=== PATIENT | male | born 1965 | race Caucasian/White ===

== ENCOUNTER 2017-05-05 10:21 | Emergency (ER) | payer OTHER ==
[~2017-05-05] VITALS: Ht 177.8 cm; Wt 63.5 kg
[~2017-05-05 10:21] MED LIST: CITA20 PO; CLON1 PO; CRUTCH3 USE; EPIPEN 2-P0.3 MG/0.3; HYDACE5 PO; LORA.5 PO; NITRSPRAY; ONDA4 PO; PROM25 PO; RXLORA1 PO; TRAZ50 PO
[2017-05-05] MEDS ORDERED: Norco 5-325 Ta1 EACH PO (11:32)
== END 2017-05-05 11:39 | disposition home or self-care (01) ==
LOC: ER 10:21
DX: M79.661 Pain in right lower leg (principal); M71.21 Synovial cyst of popliteal space [Baker], right knee; Z87.891 Personal history of nicotine dependence
CPT/HCPCS: 93971; 99284

== ENCOUNTER 2017-08-01 10:38 | Inpatient (IN) | payer OTHER ==
[~2017-08-01] VITALS: Ht 177.8 cm; Wt 68.0 kg
[~2017-08-01 10:38] MED LIST changes: +Norco 5-325 Ta1 EACH PO
[2017-08-01] MEDS ORDERED: OXYC5 PO (12:09)
[2017-08-01] MEDS ORDERED: ACET325 PO (12:09)
[2017-08-01] MEDS ORDERED: ENOX40I SC (12:09)
[2017-08-01] MEDS ORDERED: GABA300 PO (12:10)
[2017-08-01 14:47] LABS: BASOPHILS ABSOLUTE AUTO 0.03 K/mm3 (0.00-0.23); BASOPHILS PERCENT AUTO 0 % (0-2); EOSINOPHILS ABSOLUTE AUTO 0.16 K/mm3 (0.00-0.68); EOSINOPHILS PERCENT AUTO 1 % (0-6); Hematocrit 27.2 % (37.0-53.0); Hemoglobin 8.9 g/dL (13.5-17.5); IMMATURE GRAN ABSOLUTE AUTO 0.08 K/mm3 (0.00-0.10); IMMATURE GRAN PERCENT AUTO 1 % (0-1); LYMPHOCYTES ABSOLUTE AUTO 2.02 K/mm3 (0.84-5.20); LYMPHOCYTES PERCENT AUTO 17 % (21-46); MONOCYTES ABSOLUTE AUTO 0.96 K/mm3 (0.16-1.47); MONOCYTES PERCENT AUTO 8 % (4-13); Mean Corpuscular HGB 28.9 pg (26.0-34.0); Mean Corpuscular HGB Conc 32.7 g/dL (31.5-36.5); Mean Corpuscular Volume 88 fL (80-100); Mean Platelet Volume 9.3 fL (9.1-12.4); NEUTROPHILS ABSOLUTE AUTO 8.94 K/mm3 (1.96-9.15); NEUTROPHILS PERCENT AUTO 73 % (41-73); Platelet Count 528 K/mm3 (150-400); RDW Coefficient Variation 12.9 % (11.7-14.2); Red Blood Cell Count 3.08 M/mm3 (4.30-5.90); White Blood Cell Count 12.19 K/mm3 (4.00-11.30)
[2017-08-01 14:55] LABS: Anion Gap 10 mmol/L (6-16); Blood Urea Nitrogen 14 mg/dL (8-24); Bun/Creatinine Ratio 16.1 (12.0-20.0); CO2, Blood 25 mmol/L (21-32); Calcium, Blood 8.7 mg/dL (8.5-10.1); Chloride, Blood 97 mmol/L (98-108); Creatinine, Blood 0.87 mg/dL (0.60-1.20); Glomerular Filtration Rate >60 (60-); Glucose, Blood 112 mg/dL (70-99); Sodium, Blood 132 mmol/L (136-145)
[2017-08-01] MEDS ORDERED: ACET500 PO (15:12)
[2017-08-02 04:37] LABS: BASOPHILS ABSOLUTE AUTO 0.02 K/mm3 (0.00-0.23); BASOPHILS PERCENT AUTO 0 % (0-2); EOSINOPHILS ABSOLUTE AUTO 0.25 K/mm3 (0.00-0.68); EOSINOPHILS PERCENT AUTO 3 % (0-6); Hematocrit 25.5 % (37.0-53.0); Hemoglobin 8.2 g/dL (13.5-17.5); IMMATURE GRAN ABSOLUTE AUTO 0.06 K/mm3 (0.00-0.10); IMMATURE GRAN PERCENT AUTO 1 % (0-1); LYMPHOCYTES ABSOLUTE AUTO 2.06 K/mm3 (0.84-5.20); LYMPHOCYTES PERCENT AUTO 23 % (21-46); MONOCYTES ABSOLUTE AUTO 0.89 K/mm3 (0.16-1.47); MONOCYTES PERCENT AUTO 10 % (4-13); Mean Corpuscular HGB 28.7 pg (26.0-34.0); Mean Corpuscular HGB Conc 32.2 g/dL (31.5-36.5); Mean Corpuscular Volume 89 fL (80-100); Mean Platelet Volume 9.1 fL (9.1-12.4); NEUTROPHILS ABSOLUTE AUTO 5.89 K/mm3 (1.96-9.15); NEUTROPHILS PERCENT AUTO 64 % (41-73); Platelet Count 551 K/mm3 (150-400); RDW Coefficient Variation 12.8 % (11.7-14.2); RDW Standard Deviation 41.9 fL (35.1-46.3); Red Blood Cell Count 2.86 M/mm3 (4.30-5.90); White Blood Cell Count 9.17 K/mm3 (4.00-11.30)
[2017-08-02 04:58] LABS: Anion Gap 8 mmol/L (6-16); Blood Urea Nitrogen 10 mg/dL (8-24); Bun/Creatinine Ratio 12.8 (12.0-20.0); CO2, Blood 28 mmol/L (21-32); Calcium, Blood 8.2 mg/dL (8.5-10.1); Chloride, Blood 102 mmol/L (98-108); Creatinine, Blood 0.78 mg/dL (0.60-1.20); Glomerular Filtration Rate >60 (60-); Glucose, Blood 100 mg/dL (70-99); Potassium, Blood 3.9 mmol/L (3.5-5.5); Sodium, Blood 138 mmol/L (136-145)
[2017-08-02 05:05] LABS: Percent Saturation 8.4 % (20.0-50.0)
[2017-08-03] MEDS ORDERED: Percocet 10-321 EACH PO (11:01)
[2017-08-03] MEDS ORDERED: Bactrim Ds Tab1 EACH PO (11:02)
[2017-08-03] MEDS ORDERED: Senna Plus Tab1 EACH PO (11:03)
[2017-08-03] MEDS ORDERED: Acidophilus La100 GM PO (11:04)
== END 2017-08-03 18:55 | disposition home or self-care (01) | DRG 983 ==
LOC: ER 10:38 → SURS 14:23
PROVIDERS: Emergency Medicine; Internal Medicine; Orthopaedic Surgery
PROC: 0KNW0ZZ Release Left Foot Muscle, Open Approach (ICD-10-PCS; principal; 2017-08-01 15:30)
DX: T79.A22A Traumatic compartment syndrome of left lower extremity, initial encounter (principal); D64.9 Anemia, unspecified; F17.210 Nicotine dependence, cigarettes, uncomplicated; S92.002D Unspecified fracture of left calcaneus, subsequent encounter for fracture with routine healing; S82.202D Unspecified fracture of shaft of left tibia, subsequent encounter for closed fracture with routine healing; R07.9 Chest pain, unspecified
CPT/HCPCS: 20950; 36415; 73590; 80048; 82728; 83540; 83550; 85025; 86850; 86900; 86901; 97116; 97162; 97530; 99285; G8978; G8979; G8980; J0690; J1650; J2250; J3010; J3411; J3490; J7030; J7120

== ENCOUNTER 2017-08-09 07:00 | Day surgery (SDC) | payer OTHER ==
[~2017-08-09 07:00] MED LIST changes: +ACET325 PO; +ACET500 PO; +Acidophilus La100 GM PO; +Bactrim Ds Tab1 EACH PO; +ENOX40I SC; +GABA300 PO; +OXYC5 PO; +Percocet 10-321 EACH PO; +Senna Plus Tab1 EACH PO
== END 2017-08-09 09:32 | disposition home or self-care (01) ==
LOC: WOUND 07:00
PROC: 2W1SX6Z Compression of Right Foot using Pressure Dressing (ICD-10-PCS; principal; 2017-08-09)
DX: S91.301A Unspecified open wound, right foot, initial encounter (principal); S92.002D Unspecified fracture of left calcaneus, subsequent encounter for fracture with routine healing; S82.401D Unspecified fracture of shaft of right fibula, subsequent encounter for closed fracture with routine healing; R60.9 Edema, unspecified; G90.09 Other idiopathic peripheral autonomic neuropathy; S87.01XA Crushing injury of right knee, initial encounter; T86.821 Skin graft (allograft) (autograft) failure
CPT/HCPCS: G0463

== ENCOUNTER 2017-08-14 07:02 | Emergency (ER) | payer OTHER ==
[~2017-08-14] VITALS: Ht 177.8 cm; Wt 68.0 kg
[2017-08-14 07:52] LABS: BASOPHILS ABSOLUTE AUTO 0.04 K/mm3 (0.00-0.23); BASOPHILS PERCENT AUTO 0 % (0-2); EOSINOPHILS ABSOLUTE AUTO 0.01 K/mm3 (0.00-0.68); EOSINOPHILS PERCENT AUTO 0 % (0-6); Hematocrit 34.8 % (37.0-53.0); Hemoglobin 11.2 g/dL (13.5-17.5); IMMATURE GRAN ABSOLUTE AUTO 0.06 K/mm3 (0.00-0.10); IMMATURE GRAN PERCENT AUTO 1 % (0-1); LYMPHOCYTES ABSOLUTE AUTO 1.94 K/mm3 (0.84-5.20); LYMPHOCYTES PERCENT AUTO 16 % (21-46); MONOCYTES ABSOLUTE AUTO 0.26 K/mm3 (0.16-1.47); MONOCYTES PERCENT AUTO 2 % (4-13); Mean Corpuscular HGB 27.6 pg (26.0-34.0); Mean Corpuscular HGB Conc 32.2 g/dL (31.5-36.5); NEUTROPHILS PERCENT AUTO 81 % (41-73); RDW Coefficient Variation 13.8 % (11.7-14.2); Red Blood Cell Count 4.06 M/mm3 (4.30-5.90); White Blood Cell Count 11.91 K/mm3 (4.00-11.30)
[2017-08-14 07:54] LABS: Mean Corpuscular Volume 86 fL (80-100); Mean Platelet Volume 9.2 fL (9.1-12.4); Platelet Count 976 K/mm3 (150-400)
[2017-08-14 08:03] LABS: Alanine Aminotransfer (ALT/SGP 23 U/L (12-78); Albumin, Blood 3.6 g/dL (3.4-5.0); Albumin/Globulin Ratio 0.7 (0.8-1.8); Alk Phos 85 U/L (50-136); Anion Gap 15 mmol/L (6-16); Aspartate Aminotrans (AST/SGOT 16 U/L (12-37); Bilirubin, Total 0.4 mg/dL (0.1-1.0); Blood Urea Nitrogen 15 mg/dL (8-24); CO2, Blood 21 mmol/L (21-32); Calcium, Blood 10.3 mg/dL (8.5-10.1); Chloride, Blood 101 mmol/L (98-108); Creatinine, Blood 0.83 mg/dL (0.60-1.20); Globulin, Blood 5.4 g/dL (2.2-4.0); Glomerular Filtration Rate >60 (60-); Glucose, Blood 173 mg/dL (70-99); Sodium, Blood 137 mmol/L (136-145)
[2017-08-14] MEDS ORDERED: PROM25 PO (10:37)
== END 2017-08-14 11:07 | disposition home or self-care (01) ==
LOC: ER 07:02
PROVIDERS: Physician Assistant
DX: R11.2 Nausea with vomiting, unspecified (principal); Z79.899 Other long term (current) drug therapy; Z79.2 Long term (current) use of antibiotics; F32.9 Major depressive disorder, single episode, unspecified; F41.9 Anxiety disorder, unspecified; Z87.891 Personal history of nicotine dependence; Z85.118 Personal history of other malignant neoplasm of bronchus and lung
CPT/HCPCS: 36415; 73630; 80053; 83690; 85025; 96361; 96372; 96374; 96375; 96376; 99283-25; J1200; J1630; J2405; J2550; J7030

== ENCOUNTER 2017-08-16 11:00 | Day surgery (SDC) | payer OTHER | END 2017-08-16 12:23 | disposition home or self-care (01) | LOC: WOUND | DX: Z48.00 Encounter for change or removal of nonsurgical wound dressing (principal); S91.302A Unspecified open wound, left foot, initial encounter; T79.A22D Traumatic compartment syndrome of left lower extremity, subsequent encounter; S92.002D Unspecified fracture of left calcaneus, subsequent encounter for fracture with routine healing; S82.401A Unspecified fracture of shaft of right fibula, initial encounter for closed fracture; R60.9 Edema, unspecified; G90.09 Other idiopathic peripheral autonomic neuropathy; S87.01XA Crushing injury of right knee, initial encounter; T86.821 Skin graft (allograft) (autograft) failure | CPT/HCPCS: G0463 ==

== ENCOUNTER 2017-08-16 16:44 | Emergency (ER) | payer OTHER ==
[~2017-08-16] VITALS: Ht 177.8 cm; Wt 68.0 kg
== END 2017-08-16 17:44 | disposition short-term general hospital (02) ==
LOC: ER 16:44
DX: M25.572 Pain in left ankle and joints of left foot (principal); F32.9 Major depressive disorder, single episode, unspecified; F41.9 Anxiety disorder, unspecified; Z79.899 Other long term (current) drug therapy
CPT/HCPCS: 99285

== ENCOUNTER 2017-09-18 18:18 | Emergency (ER) | payer OTHER ==
[~2017-09-18] VITALS: Ht 177.8 cm; Wt 61.2 kg
[2017-09-18 18:42] LABS: BASOPHILS ABSOLUTE AUTO 0.02 K/mm3 (0.00-0.23); BASOPHILS PERCENT AUTO 0 % (0-2); EOSINOPHILS PERCENT AUTO 0 % (0-6); Hematocrit 45.3 % (37.0-53.0); Hemoglobin 14.9 g/dL (13.5-17.5); IMMATURE GRAN ABSOLUTE AUTO 0.03 K/mm3 (0.00-0.10); IMMATURE GRAN PERCENT AUTO 0 % (0-1); LYMPHOCYTES ABSOLUTE AUTO 2.26 K/mm3 (0.84-5.20); LYMPHOCYTES PERCENT AUTO 23 % (21-46); MONOCYTES ABSOLUTE AUTO 0.39 K/mm3 (0.16-1.47); MONOCYTES PERCENT AUTO 4 % (4-13); Mean Corpuscular HGB 28.1 pg (26.0-34.0); Mean Corpuscular HGB Conc 32.9 g/dL (31.5-36.5); Mean Corpuscular Volume 86 fL (80-100); Mean Platelet Volume 9.9 fL (9.1-12.4); NEUTROPHILS ABSOLUTE AUTO 7.06 K/mm3 (1.96-9.15); NEUTROPHILS PERCENT AUTO 72 % (41-73); Platelet Count 412 K/mm3 (150-400); RDW Coefficient Variation 15.1 % (11.7-14.2); RDW Standard Deviation 47.6 fL (35.1-46.3); White Blood Cell Count 9.76 K/mm3 (4.00-11.30)
[2017-09-18] MEDS ORDERED: GABA300 PO (18:53)
[2017-09-18] MEDS ORDERED: ACET500 PO (18:55)
[2017-09-18] MEDS ORDERED: CYCL10 PO (18:56)
[2017-09-18 19:02] LABS: Alanine Aminotransfer (ALT/SGP 22 U/L (12-78); Albumin, Blood 4.5 g/dL (3.4-5.0); Albumin/Globulin Ratio 1.1 (0.8-1.8); Alk Phos 58 U/L (50-136); Anion Gap 13 mmol/L (6-16); Aspartate Aminotrans (AST/SGOT 8 U/L (12-37); Bilirubin, Total 0.7 mg/dL (0.1-1.0); Blood Urea Nitrogen 13 mg/dL (8-24); Bun/Creatinine Ratio 16.5 (12.0-20.0); CO2, Blood 25 mmol/L (21-32); Calcium, Blood 10.3 mg/dL (8.5-10.1); Chloride, Blood 97 mmol/L (98-108); Creatinine, Blood 0.79 mg/dL (0.60-1.20); Globulin, Blood 4.1 g/dL (2.2-4.0); Glomerular Filtration Rate >60 (60-); Glucose, Blood 167 mg/dL (70-99); Potassium, Blood 3.6 mmol/L (3.5-5.5); Sodium, Blood 135 mmol/L (136-145); Total Protein, Blood 8.6 g/dL (6.4-8.2); Troponin I <0.015 ng/mL (0.000-0.040)
[2017-09-18 19:27] LABS: Source, Urine Clean Catch
[2017-09-18 19:30] LABS: Bilirubin, Urine Neg (Neg); Blood, Urine 1+ (Neg); Glucose Qualitative, Urine Neg (Neg); Ketones, Urine Neg (Neg); Leukocyte Esterase, Urine Neg (Neg); Nitrite, Urine Neg (Neg); Protein, Urine Neg (Neg); Urobilinogen, Urine NORM (Normal)
[2017-09-18 19:34] LABS: Appearance, Urine Clear (Clear); Color, Urine Yellow (P-Yellow)
[2017-09-18 19:37] LABS: Amorphous Heavy (0-Heavy); Bacteria Few /hpf; Squamous Epithelial Cells Not Seen /hpf (Few); White Blood Cells, Urine 0-2 /hpf (0-5)
[2017-09-18] MEDS ORDERED: COMPAZINE10 MG PO (19:51)
== END 2017-09-18 20:10 | disposition home or self-care (01) ==
LOC: ER 18:18
PROVIDERS: Emergency Medicine
DX: R11.2 Nausea with vomiting, unspecified (principal); R33.9 Retention of urine, unspecified; F41.8 Other specified anxiety disorders; Z87.891 Personal history of nicotine dependence
CPT/HCPCS: 36415; 51702; 51798; 71045; 80053; 81001; 84484; 85025; 93005; 93010; 96374; 96375; 99284-25; J0780; J1200; J2405; J7030

== ENCOUNTER → 2023-01-19 | Outpatient (CLI) | payer OTHER ==
[~2023-01-19] MED LIST changes: +COMPAZINE10 MG PO; +CYCL10 PO
[2023-01-19 13:41] LABS: BASOPHILS ABSOLUTE AUTO 0.02 K/mm3 (0.00-0.23); BASOPHILS PERCENT AUTO 0 % (0-2); EOSINOPHILS ABSOLUTE AUTO 0.03 K/mm3 (0.00-0.68); EOSINOPHILS PERCENT AUTO 0 % (0-6); Hematocrit 48.8 % (37.0-53.0); Hemoglobin 16.9 g/dL (13.5-17.5); IMMATURE GRAN ABSOLUTE AUTO 0.04 K/mm3 (0.00-0.10); IMMATURE GRAN PERCENT AUTO 1 % (0-1); LYMPHOCYTES ABSOLUTE AUTO 2.87 K/mm3 (0.84-5.20); LYMPHOCYTES PERCENT AUTO 39 % (21-46); MONOCYTES ABSOLUTE AUTO 0.63 K/mm3 (0.16-1.47); MONOCYTES PERCENT AUTO 9 % (4-13); Mean Corpuscular HGB 30.8 pg (26.0-34.0); Mean Corpuscular HGB Conc 34.6 g/dL (31.5-36.5); Mean Corpuscular Volume 89 fL (80-100); Mean Platelet Volume 10.3 fL (9.1-12.4); NEUTROPHILS ABSOLUTE AUTO 3.75 K/mm3 (1.96-9.15); NEUTROPHILS PERCENT AUTO 51 % (41-73); Platelet Count 250 K/mm3 (150-400); RDW Coefficient Variation 12.6 % (11.7-14.2); RDW Standard Deviation 41.2 fL (35.1-46.3); Red Blood Cell Count 5.49 M/mm3 (4.30-5.90); White Blood Cell Count 7.34 K/mm3 (4.00-11.30)
[2023-01-19 13:45] LABS: Albumin, Blood 3.8 g/dL (3.4-5.0); Albumin/Globulin Ratio 1.1 (0.8-1.8); Bilirubin, Total 0.5 mg/dL (0.1-1.0); Bun/Creatinine Ratio 10.5 (12.0-20.0); Calcium, Blood 8.7 mg/dL (8.5-10.1); Creatinine, Blood 0.95 mg/dL (0.60-1.20); Globulin, Blood 3.4 g/dL (2.2-4.0); Potassium, Blood 4.2 mmol/L (3.5-5.5); Total Protein, Blood 7.2 g/dL (6.4-8.2)
== END ==
LOC: LAB SHORT 13:29 → LAB 13:29
PROVIDERS: Emergency Medicine
DX: R22.1 Localized swelling, mass and lump, neck (principal)
CPT/HCPCS: 80053; 85025

== ENCOUNTER 2023-10-09 07:12 | Day surgery (SDC) | payer OTHER ==
[~2023-10-09] VITALS: Ht 177.8 cm; Wt 65.0 kg
[2023-10-09] VITALS (15 sets, daily range): BP systolic 118–148; BP diastolic 85–105
[~2023-10-09 07:12] MED LIST changes: +Lactated Ringer's 1,000 ML IV SCH
--- NOTE | 2023-10-09 07:51 | NUR ---
History, Chart, Medications and Allergies reviewed before start of procedure. Pre-Op teaching done. Pt verbalizes understanding. Ambulatory in Day Surgery. Patient States Post-Procedure ride home has been arranged. Patient states colon prep results clear. Patient confirms NPO status and agrees with scheduled surgery.
[2023-10-09] MEDS ORDERED: propofoL 20 ML IV ONE (08:03)
--- NOTE | 2023-10-09 08:14 | NUR ---
10/09/23 0814 Ton Monk HISTORY, CHART, MEDICATIONS AND ALLERGIES REVIEWED BEFORE START OF PROCEDURE. PATIENT CONFIRMS NPO STATUS AND AGREES WITH SCHEDULED PROCEDURE. 3-LEAD EKG REVIEWED WITH PHYSICIAN PRIOR TO START OF PROCEDURE. MONITOR INTACT WITH CONTINUOUS PULSE OXIMETRY,CAPNOGRAPHY, 3-LEAD EKG, INTERMITTENT BP. SUPPLEMENTAL O2 TO BE TITRATED THROUGHOUT PROCEDURE TO MAINTAIN O2 SATURATION ABOVE 90%. PATIENT DETERMINED TO BE ASA APPROPRIATE FOR PROPOFOL SEDATION PRIOR TO START OF PROCEDURE BY
--- NOTE | 2023-10-09 09:03 | NUR ---
Discharge instructions reviewed with patient. Patient verbalizes understanding. Copy given to patient to take home. Patient States Post-Procedure ride home has been arranged. Discharged via wheelchair to private car for ride home.
== END 2023-10-09 23:15 | disposition home or self-care (01) ==
LOC: ORSCMMR 07:12 → ORD 08:00 → ORSCMMR 23:15
PROVIDERS: Internal Medicine Gastroenterology
PROC: 0DBL8ZX Excision of Transverse Colon, Via Natural or Artificial Opening Endoscopic, Diagnostic (ICD-10-PCS; principal; 2023-10-09 08:00)
DX: Z12.11 Encounter for screening for malignant neoplasm of colon (principal); Z86.010 Personal history of colon polyps; D49.0 Neoplasm of unspecified behavior of digestive system; J44.9 Chronic obstructive pulmonary disease, unspecified; Z87.19 Personal history of other diseases of the digestive system; Z79.899 Other long term (current) drug therapy
CPT/HCPCS: J2704; J7120

== ENCOUNTER 2024-06-24 12:31 | Emergency (ER) | payer OTHER ==
[~2024-06-24] VITALS: Ht 177.8 cm; Wt 68.0 kg
[2024-06-24 18:33] VITALS: BP 139/83
== END 2024-06-24 18:57 | disposition home or self-care (01) ==
LOC: ER 12:31
DX: R07.89 Other chest pain (principal); R06.02 Shortness of breath; R42 Dizziness and giddiness; J44.9 Chronic obstructive pulmonary disease, unspecified; Z87.891 Personal history of nicotine dependence; Z85.118 Personal history of other malignant neoplasm of bronchus and lung; Z59.89 Other problems related to housing and economic circumstances